=== PATIENT | male | born 1945 | race African-American/Black ===

== ENCOUNTER → 2020-04-25 | Outpatient (CLI) | payer MEDICARE ==
[~2020-04-25] MED LIST: ASPI-986 PO; ATEN-42 PO; CLOP75TA4 PO; FISH OIL OMEGA1 EACH PO; HYDR-4067 PO; IBUP-2030 PO; ISOS30TA47 PO; LEVO75TA7 PO; MULT-477 PO; ROSU20TA2 PO
== END | disposition home or self-care (01) ==
LOC: LAB 10:27
PROVIDERS: ATTEND Internal Medicine Endocrinology, Diabetes & Metabolism
DX: U07.1 COVID-19 (principal)
CPT/HCPCS: C9803; U0003

== ENCOUNTER → 2020-05-16 | Outpatient (CLI) | payer MEDICARE | END | disposition home or self-care (01) | LOC: LAB 08:01 | PROVIDERS: ATTEND Internal Medicine Endocrinology, Diabetes & Metabolism | DX: Z03.818 Encounter for observation for suspected exposure to other biological agents ruled out (principal) | CPT/HCPCS: 87635 ==

== ENCOUNTER → 2020-05-23 | Outpatient (CLI) | payer MEDICARE | END | disposition home or self-care (01) | LOC: LAB 08:18 | PROVIDERS: ATTEND Internal Medicine Endocrinology, Diabetes & Metabolism | DX: Z11.59 Encounter for screening for other viral diseases (principal) | CPT/HCPCS: C9803; U0003 ==

== ENCOUNTER → 2020-05-26 | Outpatient (CLI) | payer MEDICARE ==
[~2020-05-26] MED LIST changes: +LIDOCAINE HCL 1% 20ML VIAL (Pyxis) INJ ONE; +SODIUM BICARBONATE 4% (2.4MEQ) 5ML VIAL IV ONE
== END | disposition home or self-care (01) ==
LOC: US 10:11
PROVIDERS: ATTEND Internal Medicine Endocrinology, Diabetes & Metabolism
DX: E04.2 Nontoxic multinodular goiter (principal); Z79.899 Other long term (current) drug therapy
CPT/HCPCS: 10005; 10006; 76536; 88172; 88173; J3490

== ENCOUNTER → 2022-05-16 | Day surgery (SDC) | payer MEDICARE ==
[~2022-05-16] MED LIST changes: +CLOP-31 PO; -CLOP75TA4 PO; -HYDR-4067 PO; +HYDR-4797 PO; +LIDOCAINE HCL 1% 10 MG/ML 10ML VIAL ONE; -LIDOCAINE HCL 1% 20ML VIAL (Pyxis) INJ ONE
== END | disposition home or self-care (01) ==
LOC: RAD 09:33
PROVIDERS: ATTEND Internal Medicine Endocrinology, Diabetes & Metabolism
DX: E04.2 Nontoxic multinodular goiter (principal); Z79.899 Other long term (current) drug therapy; Z98.890 Other specified postprocedural states
CPT/HCPCS: 10005; 10006; 88172; 88173; J3490

== ENCOUNTER 2024-10-21 12:08 | Emergency (ER) | payer MEDICARE ==
[~2024-10-21] VITALS: Ht 182.9 cm; Wt 70.0 kg
[~2024-10-21 12:08] MED LIST changes: -LIDOCAINE HCL 1% 10 MG/ML 10ML VIAL ONE; -SODIUM BICARBONATE 4% (2.4MEQ) 5ML VIAL IV ONE
[2024-10-21 12:13] VITALS: BP 115/58; PULSE 73; RESP 15; TEMP 98.3; O2SAT 100
== END 2024-10-21 17:35 | disposition left against medical advice (07) ==
LOC: ER 12:32
DX: R10.9 Unspecified abdominal pain (principal); Z53.21 Procedure and treatment not carried out due to patient leaving prior to being seen by health care provider

== ENCOUNTER → 2024-11-05 | Day surgery (SDC) | payer MEDICARE ==
[~2024-11-05] MED LIST changes: +LIDOCAINE HCL 1% 10 MG/ML 10ML VIAL ONE
== END | disposition home or self-care (01) ==
LOC: RAD 09:11
PROVIDERS: ATTEND Internal Medicine Endocrinology, Diabetes & Metabolism
DX: E04.2 Nontoxic multinodular goiter (principal); Z79.82 Long term (current) use of aspirin; Z79.899 Other long term (current) drug therapy; Z98.890 Other specified postprocedural states
CPT/HCPCS: 10005; 10006; 88172; 88173; J2003; 88305